=== PATIENT | male | born 1955 | race Caucasian/White ===

== ENCOUNTER 2017-05-07 10:10 | Inpatient (IN) | payer MEDICAID ==
--- NOTE | 2017-05-07 10:55 | C.PDOC ---
History Of Present Illness Patient is a 61 y/o male, accompanied by brother, is referred from the clinic for low hemoglobin level. Pt states that he visited the clinic yesterday because he was feeling dizzy, and had blood work done there. States he received a call from the clinic today, was told his hemoglobin level was 5.8g/dl, and told to report to an ER. Denies having history of low hemoglobin in the past. Pt also complains of headache at this time. Denies any blood in stool, nausea, vomiting, fever, or any other associated symptoms at this time. Time Seen by Provider: 05/07/17 10:18 Chief Complaint (Nursing): Abnormal Labs History Per: Patient History/Exam Limitations: no limitations Onset/Duration Of Symptoms: Days Current Symptoms Are (Timing): Still Present Recent travel outside of the [place]: No Additional History Per: Patient Past Medical History Reviewed: Historical Data, Nursing Documentation, Vital Signs Vital Signs: Last Vital Signs Temp 98.9 F 05/07/17 10:12 Pulse 77 05/07/17 10:12 Resp 18 05/07/17 10:12 BP 133/78 05/07/17 10:12 Pulse Ox 99 05/07/17 11:22 - Medical History PMH: HTN Family History: States: No Known Family Hx - Social History Hx Alcohol Use: No Hx Substance Use: No Review Of Systems Except As Marked, All Systems Reviewed And Found Negative. Constitutional: Negative for: Fever, Chills Cardiovascular: Negative for: Chest Pain, Palpitations Respiratory: Negative for: Cough, Shortness of Breath Gastrointestinal: Negative for: Nausea, Vomiting, Abdominal Pain, Hematochezia, Hematemesis Skin: Negative for: Rash, Bruising Neurological: Positive for: Headache, Dizziness. Negative for: Weakness, Numbness Physical Exam - Physical Exam Additional Physical Exam Comments: Constitutional: No acute distress. Head: Normocephalic. Atraumatic. Eyes: PERRL. Conjunctival pallor. ENT: Moist mucous membranes. Neck: Supple. Cardiovascular: Regular rate. Radial pulses 2+ bilaterally. Chest: No tenderness. Respiratory: Clear to auscultation bilaterally. GI: Soft. Nontender. Nondistended. Back: No CVA tenderness. Musculoskeletal: No tenderness or swelling of extremities. Skin: No rash. Neurologic: Alert, no focal deficit. ED Course And Treatment - Laboratory Results Result Diagrams: 05/07/17 10:41 05/07/17 10:41 O2 Sat by Pulse Oximetry: 99 (RA) Pulse Ox Interpretation: Normal Medical Decision Making Medical Decision Making: Plan: Blood work, UA, CXR, EKG EKG: Normal sinus rhythm at [address] wave changes. CXR HISTORY: anemia COMPARISON: No prior. FINDINGS: LUNGS: No active pulmonary disease. PLEURA: No significant pleural effusion identified, no pneumothorax apparent. CARDIOVASCULAR: Normal. OSSEOUS STRUCTURES: No significant abnormalities. VISUALIZED UPPER ABDOMEN: Normal. OTHER FINDINGS: None. IMPRESSION: No active disease. Guaiac negative. Patient consented for blood transfusion and ordered. Disposition Discussed With Dr.: Jatin Bonilla Doctor Will See Patient In The: Hospital - Disposition Disposition: HOSPITALIZED Disposition Time: 11:29 Condition: FAIR - Clinical Impression Clinical Impression: Symptomatic anemia - Scribe Statement The provider has reviewed the documentation as recorded by the Daphneibalaina Iraheta All medical record entries made by the Daphneibalaina were at my direction and personally dictated by me. I have reviewed the chart and agree that the record accurately reflects my personal performance of the history, physical exam, medical decision making, and the department course for this patient. I have also personally directed, reviewed, and agree with the discharge instructions and disposition.
[2017-05-07 10:58] LABS: BASO # 0.1 K/uL (0.0-0.2); BASO % 2.4 % (0.0-2.0); EOS # 0.1 K/uL (0.0-0.7); HEMATOCRIT 19.9 % (35.0-51.0); LYMPH # 0.9 K/uL (1.0-4.3); LYMPH % 22.6 % (20.0-40.0); MEAN CELL VOLUME 55.7 fL (80.0-94.0); MEAN CORPUSCULAR HEMOGLOBIN 15.4 pg (27.0-31.0); MEAN CORPUSCULAR HGB CONC 27.7 g/dL (33.0-37.0); MEAN PLATELET VOLUME 8.6 fL (7.2-11.7); MONO # 0.3 K/uL (0.0-0.8); MONO % 8.1 % (0.0-10.0); NRBC % 0.1 % (0.0-2.0); RED CELL DISTRIBUTION WIDTH 20.2 % (11.5-14.5)
[2017-05-07 10:59] LABS: INR 1.4
[2017-05-07 11:02] LABS: CHLORIDE 105 mmol/L (98-107); POTASSIUM 3.2 mmol/L (3.6-5.2); SODIUM 143 mmol/L (132-148)
[2017-05-07 11:04] LABS: AST/SGOT 25 U/L (17-59); CARBON DIOXIDE 24 mmol/L (22-30); GFR AFRICAN-AMERICAN > 60
[2017-05-07 11:05] LABS: ALB/GLOB RATIO 1.1 (1.0-2.1); ALKALINE PHOSPHATASE 76 U/L (38-126); ALT/SGPT 21 U/L (21-72); BLOOD UREA NITROGEN 13 mg/dL (9-20); GLUCOSE,RANDOM 84 mg/dL (75-110); TOTAL PROTEIN 7.7 g/dL (6.3-8.3)
--- NOTE | 2017-05-07 11:17 | RAD ---
HISTORY: anemia COMPARISON: No prior. FINDINGS: LUNGS: No active pulmonary disease. PLEURA: No significant pleural effusion identified, no pneumothorax apparent. CARDIOVASCULAR: Normal. OSSEOUS STRUCTURES: No significant abnormalities. VISUALIZED UPPER ABDOMEN: Normal. OTHER FINDINGS: None. IMPRESSION: No active disease.
[2017-05-07] MEDS ORDERED: Sodium Chloride 0.9% 250 ML IV ONE (11:26)
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
[2017-05-07 15:10] LABS: IRON 13 ug/dL (49-181)
[2017-05-07 15:52] LABS: HOMOCYSTEINE 7.3 umol/L (6.6-14.8)
[2017-05-07 16:26] LABS: FOLATE > 20.0 ng/mL
[2017-05-08] MEDS ORDERED: Potassium Chloride 20 mEq ER Tab PO ONE (06:00)
[2017-05-08 06:37] LABS: BASO # 0.1 K/uL (0.0-0.2); BASO % 2.1 % (0.0-2.0); EOS # 0.2 K/uL (0.0-0.7); EOS % 4.7 % (0.0-4.0); HEMATOCRIT 23.8 % (35.0-51.0); LYMPH # 1.2 K/uL (1.0-4.3); LYMPH % 25.9 % (20.0-40.0); MEAN CORPUSCULAR HEMOGLOBIN 16.8 pg (27.0-31.0); MEAN CORPUSCULAR HGB CONC 28.6 g/dL (33.0-37.0); MEAN PLATELET VOLUME 9.3 fL (7.2-11.7); MONO # 0.3 K/uL (0.0-0.8); WHITE BLOOD COUNT 4.8 K/uL (4.8-10.8)
[2017-05-08 06:38] LABS: MEAN CELL VOLUME 58.7 fL (80.0-94.0)
[2017-05-08 06:56] LABS: ALB/GLOB RATIO 1.2 (1.0-2.1); ALKALINE PHOSPHATASE 77 U/L (38-126); ALT/SGPT 19 U/L (21-72); AST/SGOT 17 U/L (17-59); BILIRUBIN,TOTAL 0.7 mg/dL (0.2-1.3); BLOOD UREA NITROGEN 11 mg/dL (9-20); CALCIUM 8.9 mg/dl (8.6-10.4); CARBON DIOXIDE 25 mmol/L (22-30); CHLORIDE 103 mmol/L (98-107); GFR AFRICAN-AMERICAN > 60; GLUCOSE,RANDOM 93 mg/dL (75-110); POTASSIUM 3.4 mmol/L (3.6-5.2); SODIUM 140 mmol/L (132-148)
[2017-05-08 07:58] LABS: FOLATE 16.3 ng/mL
[2017-05-08 08:37] LABS: TOTAL PROTEIN, SERUM 7.3 g/dL (6.1-8.1)
[2017-05-08] MEDS ORDERED: Pneumococcal 23-Valent Vaccine IM ONE (08:57)
--- NOTE | 2017-05-08 20:49 | CP.PCM.PN ---
<Savage Vega H - Last Filed: 05/08/17 21:07> Subjective - Date & Time of Evaluation Date of Evaluation: 05/08/17 Time of Evaluation: 11:40 - Subjective Subjective: Dr. Bonilla service: He is in bed receiving a blood transfusion. He has no complaints of fatigue, chest pain, shortness of breath, blood in stool, hematuria, fever or chills. Objective - Vital Signs/Intake and Output Vital Signs (last 24 hours): Temp Pulse Resp BP Pulse Ox 97.6 F 60 20 154/88 H 100 05/08/17 15:15 05/08/17 15:15 05/08/17 15:15 05/08/17 15:15 05/08/17 15:15 Intake and Output: 05/08/17 05/09/17 18:59 06:59 Intake Total 675 Balance 675 - Medications Medications: Current Medications Acetaminophen (Tylenol 325mg Tab) 650 mg PO Q6 PRN PRN Reason: Fever >100.4 F Famotidine (Pepcid) 20 mg PO BID [facility] Last Admin: 05/08/17 17:41 Dose: 20 mg - Labs Labs: 05/08/17 06:32 05/08/17 06:32 PT 15.7 SECONDS (9.7-12.2) H 05/07/17 10:41 INR 1.4 05/07/17 10:41 APTT 29 SECONDS (21-34) 05/07/17 10:41 - Constitutional Appears: Non-toxic, No Acute Distress - Head Exam Head Exam: NORMAL INSPECTION - Eye Exam Eye Exam: Normal appearance, PERRL. absent: Nystagmus, Scleral icterus Pupil Exam: NORMAL ACCOMODATION - Respiratory Exam Respiratory Exam: Clear to Ausculation Bilateral. absent: Rales, Rhonchi, Wheezes - Cardiovascular Exam Cardiovascular Exam: REGULAR RHYTHM, RRR, +S1, +S2. absent: Gallop, Rubs - GI/Abdominal Exam GI & Abdominal Exam: Soft, Normal Bowel Sounds. absent: Tenderness - Extremities Exam Extremities Exam: Normal Inspection. absent: Pedal Edema - Back Exam Back Exam: NORMAL INSPECTION - Neurological Exam Neurological Exam: Alert - Psychiatric Exam Psychiatric exam: Normal Affect, Normal Mood - Skin Skin Exam: Pallor. absent: Normal Color Assessment and Plan - Assessment and Plan (Free Text) Assessment: Anemia 05/08: Received 2 units today, follow up cbc, and Dr. Quesada's recs. Iron is low and so is % saturation, suggest iron deficiency anemia. Hgb in the ED 5.5 -Patient refused blood transfusion -Occult blood negative in the ED, repeats pending -Heme/onc consult, Dr. Quesada help appreciated -Follow up Iron studies, homocysteine, B12, folate, protein electrophoresis HTN -Noncompliance to home meds -Hold home hypertensive, BP is in the normal range Prophylactic measures -Pepcid -SCD -Tylenol -Full code Plan: Anemia -Hgb in the ED 5.5 -Patient refused blood transfusion -Occult blood negative in the ED, repeats pending -Heme/onc consult, Dr. Quesada help appreciated -Follow up Iron studies, homocysteine, B12, folate, protein electrophoresis HTN -Noncompliance to home meds -Hold home hypertensive, BP is in the normal range Prophylactic measures -Pepcid -SCD -Tylenol -Full code <Jatin Bonilla - Last Filed: 05/09/17 14:35> Objective - Vital Signs/Intake and Output Vital Signs (last 24 hours): Temp Pulse Resp BP Pulse Ox 98 F 74 20 166/89 H 100 05/09/17 09:32 05/09/17 09:32 05/09/17 09:32 05/09/17 09:32 05/09/17 09:32 Intake and Output: 05/09/17 05/09/17 06:59 18:59 Intake Total 550 Output Total 1100 Balance -550 - Medications Medications: Current Medications Acetaminophen (Tylenol 325mg Tab) 650 mg PO Q6 PRN PRN Reason: Fever >100.4 F Famotidine (Pepcid) 20 mg PO BID [facility] Last Admin: 05/09/17 11:00 Dose: 20 mg Ferric Sodium Gluconate Complex (Ferrlecit) 125 mg IVPB DAILY [facility] Last Admin: 05/09/17 11:01 Dose: 125 mg Haloperidol Lactate (Haldol) 2 mg IM Q6H PRN PRN Reason: Agitation Last Admin: 05/09/17 11:49 Dose: 2 mg - Labs Labs: 05/09/17 11:41 05/09/17 11:41 PT 15.7 SECONDS (9.7-12.2) H 05/07/17 10:41 INR 1.4 05/07/17 10:41 APTT 29 SECONDS (21-34) 05/07/17 10:41 Attending/Attestation - Attestation I have personally seen and examined this patient.: Yes I have fully participated in the care of the patient.: Yes I have reviewed all pertinent clinical information, including history, physical exam and plan: Yes Notes (Text): 05/09/17 14:35 Patient was seen and examined at bedside Receiving 2 units of blood transfusion We will follow up CBC Anemia workup in progress We have requested a hematology evaluation Discussed the plan of care with the resident and agree with the assessment and plan documented.
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
--- NOTE | 2017-05-08 22:12 | CP.PCM.PN ---
Subjective - Date & Time of Evaluation Date of Evaluation: 05/08/17 Time of Evaluation: 17:00 - Subjective Subjective: Feeling better Objective - Vital Signs/Intake and Output Vital Signs (last 24 hours): Temp Pulse Resp BP Pulse Ox 97.6 F 60 20 154/88 H 100 05/08/17 15:15 05/08/17 15:15 05/08/17 15:15 05/08/17 15:15 05/08/17 15:15 Intake and Output: 05/08/17 05/09/17 18:59 06:59 Intake Total 675 Balance 675 - Medications Medications: Current Medications Acetaminophen (Tylenol 325mg Tab) 650 mg PO Q6 PRN PRN Reason: Fever >100.4 F Famotidine (Pepcid) 20 mg PO BID [facility] Last Admin: 05/08/17 17:41 Dose: 20 mg Ferric Sodium Gluconate Complex (Ferrlecit) 125 mg IVPB DAILY [facility] - Labs Labs: 05/08/17 06:32 05/08/17 06:32 PT 15.7 SECONDS (9.7-12.2) H 05/07/17 10:41 INR 1.4 05/07/17 10:41 APTT 29 SECONDS (21-34) 05/07/17 10:41 - Head Exam Head Exam: ATRAUMATIC - Eye Exam Eye Exam: Normal appearance - ENT Exam ENT Exam: Mucous Membranes Dry - Respiratory Exam Respiratory Exam: NORMAL BREATHING PATTERN - Cardiovascular Exam Cardiovascular Exam: +S1, +S2 - GI/Abdominal Exam GI & Abdominal Exam: Normal Bowel Sounds - Extremities Exam Extremities Exam: Normal Inspection Assessment and Plan (1) Anemia Assessment & Plan: work up consistent with iron deficiency FOBT negative; outpatient GI w/u recommend checking UA will start IV iron transfusion support for goal HGB > 8 Status: Acute (2) Coagulopathy Status: Acute
[2017-05-09] MEDS: Ferric Sodium Gluconat Complex 62.5 mg/5 ml Vial IVPB SCH (11:01)
[2017-05-09 12:01] LABS: CHLORIDE 101 mmol/L (98-107); POTASSIUM 3.7 mmol/L (3.6-5.2); SODIUM 143 mmol/L (132-148)
[2017-05-09 12:03] LABS: BASO # 0.1 K/uL (0.0-0.2); BASO % 1.3 % (0.0-2.0); BILIRUBIN,TOTAL 1.3 mg/dL (0.2-1.3); CARBON DIOXIDE 26 mmol/L (22-30); EOS # 0.1 K/uL (0.0-0.7); EOS % 1.3 % (0.0-4.0); GFR AFRICAN-AMERICAN > 60; HEMATOCRIT 28.9 % (35.0-51.0); LYMPH # 1.3 K/uL (1.0-4.3); LYMPH % 19.7 % (20.0-40.0); MEAN CORPUSCULAR HEMOGLOBIN 18.1 pg (27.0-31.0); MEAN CORPUSCULAR HGB CONC 29.9 g/dL (33.0-37.0); MEAN PLATELET VOLUME 8.7 fL (7.2-11.7); MONO # 0.4 K/uL (0.0-0.8); MONO % 6.1 % (0.0-10.0); RED CELL DISTRIBUTION WIDTH 26.5 % (11.5-14.5); WHITE BLOOD COUNT 6.8 K/uL (4.8-10.8)
[2017-05-09 12:04] LABS: ALB/GLOB RATIO 1.1 (1.0-2.1); ALKALINE PHOSPHATASE 92 U/L (38-126); ALT/SGPT 26 U/L (21-72); AST/SGOT 20 U/L (17-59); BLOOD UREA NITROGEN 11 mg/dL (9-20); CALCIUM 9.9 mg/dl (8.6-10.4); GLUCOSE,RANDOM 84 mg/dL (75-110); MEAN CELL VOLUME 60.7 fL (80.0-94.0); TOTAL PROTEIN 8.9 g/dL (6.3-8.3)
--- NOTE | 2017-05-09 15:35 | CP.PCM.PN ---
<Jatin Bonilla M - Last Filed: 05/09/17 16:46> Objective - Vital Signs/Intake and Output Vital Signs (last 24 hours): Temp Pulse Resp BP Pulse Ox 98.4 F 70 18 152/78 H 98 05/09/17 15:39 05/09/17 15:39 05/09/17 15:39 05/09/17 15:39 05/09/17 15:39 Intake and Output: 05/09/17 05/09/17 06:59 18:59 Intake Total 550 Output Total 1100 Balance -550 - Medications Medications: Current Medications Acetaminophen (Tylenol 325mg Tab) 650 mg PO Q6 PRN PRN Reason: Fever >100.4 F Famotidine (Pepcid) 20 mg PO BID [facility] Last Admin: 05/09/17 11:00 Dose: 20 mg Ferric Sodium Gluconate Complex (Ferrlecit) 125 mg IVPB DAILY [facility] Last Admin: 05/09/17 11:01 Dose: 125 mg Haloperidol Lactate (Haldol) 2 mg IM Q6H PRN PRN Reason: Agitation Last Admin: 05/09/17 11:49 Dose: 2 mg - Labs Labs: 05/09/17 11:41 05/09/17 11:41 PT 15.7 SECONDS (9.7-12.2) H 05/07/17 10:41 INR 1.4 05/07/17 10:41 APTT 29 SECONDS (21-34) 05/07/17 10:41 Attending/Attestation - Attestation I have personally seen and examined this patient.: Yes I have fully participated in the care of the patient.: Yes I have reviewed all pertinent clinical information, including history, physical exam and plan: Yes Notes (Text): 05/09/17 16:47 Patient was seen and examined at bedside today Patient appears confused He is status post 2 units of PRBC. Follow-up a CBC We will transfuse further if needed The confusion and change in mental status appears to be secondary to hospital delirium We will monitor the patientand order Haldol as needed We will also request psychiatry evaluation for the patient I discussed the plan of care with the resident and agree with the assessment and plan documented above. <Savage Vega H - Last Filed: 05/09/17 21:32> Subjective - Date & Time of Evaluation Date of Evaluation: 05/09/17 Time of Evaluation: 10:00 - Subjective Subjective: Dr. Bonilla service: Patient seen in room. He is very confused and disoriented. He does not know where is at and why is here. He is also unoriented the year, month, and day of the week. Unable to obtain history from patient. Spoke with family in room who says patient is often confused at home. They said he lives alone although he has a and children in [place]. Objective - Vital Signs/Intake and Output Vital Signs (last 24 hours): Temp Pulse Resp BP Pulse Ox 98 F 74 20 166/89 H 100 05/09/17 09:32 05/09/17 09:32 05/09/17 09:32 05/09/17 09:32 05/09/17 09:32 Intake and Output: 05/09/17 05/09/17 06:59 18:59 Intake Total 550 Output Total 1100 Balance -550 - Medications Medications: Current Medications Acetaminophen (Tylenol 325mg Tab) 650 mg PO Q6 PRN PRN Reason: Fever >100.4 F Famotidine (Pepcid) 20 mg PO BID [facility] Last Admin: 05/09/17 11:00 Dose: 20 mg Ferric Sodium Gluconate Complex (Ferrlecit) 125 mg IVPB DAILY [facility] Last Admin: 05/09/17 11:01 Dose: 125 mg Haloperidol Lactate (Haldol) 2 mg IM Q6H PRN PRN Reason: Agitation Last Admin: 05/09/17 11:49 Dose: 2 mg - Labs Labs: 05/09/17 11:41 05/09/17 11:41 PT 15.7 SECONDS (9.7-12.2) H 05/07/17 10:41 INR 1.4 05/07/17 10:41 APTT 29 SECONDS (21-34) 05/07/17 10:41 - Constitutional Appears: Confused - Eye Exam Eye Exam: Normal appearance - Respiratory Exam Respiratory Exam: Clear to Ausculation Bilateral. absent: Rales, Rhonchi, Wheezes - Cardiovascular Exam Cardiovascular Exam: REGULAR RHYTHM, RRR, +S1, +S2. absent: Gallop, Rubs - GI/Abdominal Exam GI & Abdominal Exam: Soft, Normal Bowel Sounds. absent: Tenderness - Extremities Exam Extremities Exam: Normal Inspection. absent: Pedal Edema - Neurological Exam Neurological Exam: absent: Oriented x3 - Psychiatric Exam Psychiatric exam: Anxious - Skin Skin Exam: Warm. absent: Normal Color Assessment and Plan - Assessment and Plan (Free Text) Assessment: Delirium: Psych consulted, most likely hospital acquired delrium. Mary victoria. Spoke with family who said he has been diagnosed with dementia in the past. Anemia 05/09: Hbg is no 8.4, IV Ferrict for low iron 05/08: Received 2 units today, follow up cbc, and Dr. Quesada's recs. Iron is low and so is % saturation, suggest iron deficiency anemia. Hgb in the ED 5.5 -Patient refused blood transfusion -Occult blood negative in the ED, repeats pending -Heme/onc consult, Dr. Quesada help appreciated -Follow up Iron studies, homocysteine, B12, folate, protein electrophoresis HTN -Noncompliance to home meds -Hold home hypertensive, BP is in the normal range Prophylactic measures -Pepcid -SCD -Tylenol -Full code
--- NOTE | 2017-05-09 22:04 | PCM.PSYCH ---
Initial Psychiatric Evaluation - Initial Psychiatric Evaluation Type of Admission: Voluntary Legal Status: Capacity Chief Complaint (in patient's own words): I am home, waiting for my kids to come. Current Medications: Active Medications Generic Name Dose Route Start Last Admin Trade Name Freq PRN Reason Stop Dose Admin Acetaminophen 650 mg 05/07/17 15:59 Tylenol 325mg Tab PO Q6 PRN Fever >100.4 F Famotidine 20 mg 05/07/17 18:00 05/09/17 18:26 Pepcid PO 20 mg BID [facility] Administration Ferric Sodium Gluconate Complex 125 mg 05/08/17 21:30 05/09/17 11:01 Ferrlecit IVPB 125 mg DAILY [facility] Administration Haloperidol Lactate 2 mg 05/09/17 10:44 05/09/17 11:49 Haldol IM 2 mg Q6H PRN Administration Agitation Past Psychiatric History - Past Psychiatric History Pertinent Medical Hx (Current Medical&Sleep Prob, Allergies): Allergies Allergy/AdvReac Type Severity Reaction Status Date / Time No Known Allergies Allergy Verified 05/07/17 10:17 Amlodipine Besylate/Benazepril [Lotrel 10 mg-40 mg] 1 cap PO DAILY 05/07/17 Propranolol [Inderal] 40 mg PO DAILY 05/07/17
[2017-05-10] MEDS: Ferric Sodium Gluconat Complex 62.5 mg/5 ml Vial IVPB SCH (10:21)
[2017-05-10 12:29] LABS: BASO # 0.1 K/uL (0.0-0.2); BASO % 1.8 % (0.0-2.0); EOS # 0.2 K/uL (0.0-0.7); EOS % 3.1 % (0.0-4.0); HEMATOCRIT 26.3 % (35.0-51.0); LYMPH # 1.5 K/uL (1.0-4.3); LYMPH % 25.2 % (20.0-40.0); MEAN CELL VOLUME 60.9 fL (80.0-94.0); MEAN CORPUSCULAR HEMOGLOBIN 18.2 pg (27.0-31.0); MEAN CORPUSCULAR HGB CONC 29.9 g/dL (33.0-37.0); MEAN PLATELET VOLUME 8.8 fL (7.2-11.7); MONO # 0.5 K/uL (0.0-0.8); MONO % 9.5 % (0.0-10.0); RED CELL DISTRIBUTION WIDTH 26.2 % (11.5-14.5); WHITE BLOOD COUNT 5.8 K/uL (4.8-10.8)
[2017-05-10 12:44] LABS: CHLORIDE 101 mmol/L (98-107); SODIUM 142 mmol/L (132-148)
[2017-05-10 12:47] LABS: ALB/GLOB RATIO 1.1 (1.0-2.1); ALKALINE PHOSPHATASE 80 U/L (38-126); ALT/SGPT 23 U/L (21-72); AST/SGOT 18 U/L (17-59); BILIRUBIN,TOTAL 0.9 mg/dL (0.2-1.3); BLOOD UREA NITROGEN 11 mg/dL (9-20); CALCIUM 9.5 mg/dl (8.6-10.4); CARBON DIOXIDE 26 mmol/L (22-30); GFR AFRICAN-AMERICAN > 60; GLUCOSE,RANDOM 98 mg/dL (75-110); TOTAL PROTEIN 7.7 g/dL (6.3-8.3)
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
--- NOTE | 2017-05-11 | CARD ---
APPROVED REPORT EKG Measurement Heart [id number] MI [id number] <Conclusion> Sinus bradycardia Otherwise normal ECG
--- NOTE | 2017-05-11 04:24 | CP.PCM.PN ---
Subjective - Date & Time of Evaluation Date of Evaluation: 05/10/17 Time of Evaluation: 19:00 - Subjective Subjective: No complaints Objective - Vital Signs/Intake and Output Vital Signs (last 24 hours): Temp Pulse Resp BP Pulse Ox 98.0 F 58 L 20 145/83 97 05/11/17 00:05 05/11/17 00:05 05/11/17 00:05 05/11/17 00:05 05/11/17 00:05 - Medications Medications: Current Medications Acetaminophen (Tylenol 325mg Tab) 650 mg PO Q6 PRN PRN Reason: Fever >100.4 F Last Admin: 05/10/17 10:21 Dose: 650 mg Famotidine (Pepcid) 20 mg PO BID REPLACED BY [facility] Last Admin: 05/10/17 17:04 Dose: 20 mg Ferric Sodium Gluconate Complex (Ferrlecit) 125 mg IVPB DAILY [facility]PL[facility] Last Admin: 05/10/17 10:21 Dose: 125 mg Haloperidol Lactate (Haldol) 2 mg IM Q6H PRN PRN Reason: Agitation Last Admin: 05/09/17 11:49 Dose: 2 mg - Labs Labs: 05/10/17 12:21 05/10/17 12:21 PT 15.7 SECONDS (9.7-12.2) H 05/07/17 10:41 INR 1.4 05/07/17 10:41 APTT 29 SECONDS (21-34) 05/07/17 10:41 - Head Exam Head Exam: ATRAUMATIC - Eye Exam Eye Exam: Normal appearance - ENT Exam ENT Exam: Mucous Membranes Dry - Respiratory Exam Respiratory Exam: NORMAL BREATHING PATTERN - Cardiovascular Exam Cardiovascular Exam: +S1, +S2 - Extremities Exam Extremities Exam: Normal Inspection Assessment and Plan (1) Anemia Assessment & Plan: iron deficiency anemia outpatient GI work up IV ferrlecit transfusion support PRN Status: Acute (2) Coagulopathy Status: Acute
[2017-05-11 06:37] LABS: BASO # 0.1 K/uL (0.0-0.2); EOS # 0.3 K/uL (0.0-0.7); EOS % 5.2 % (0.0-4.0); HEMATOCRIT 26.8 % (35.0-51.0); LYMPH # 1.4 K/uL (1.0-4.3); LYMPH % 23.3 % (20.0-40.0); MEAN CELL VOLUME 61.1 fL (80.0-94.0); MEAN CORPUSCULAR HEMOGLOBIN 18.1 pg (27.0-31.0); MEAN CORPUSCULAR HGB CONC 29.6 g/dL (33.0-37.0); MEAN PLATELET VOLUME 8.6 fL (7.2-11.7); MONO # 0.6 K/uL (0.0-0.8); MONO % 9.6 % (0.0-10.0); RED CELL DISTRIBUTION WIDTH 26.3 % (11.5-14.5)
[2017-05-11 08:28] VITALS: BP 157/86; PULSE 65; RESP 18; TEMP 98.2; O2SAT 98
[2017-05-11] MEDS: Ferric Sodium Gluconat Complex 62.5 mg/5 ml Vial IVPB SCH (10:08)
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
[2017-05-11 20:33] LABS: BETA 1 GLOBULIN 0.5 g/dL (0.4-0.6); BETA 2 GLOBULIN 0.3 g/dL (0.2-0.5); GAMMA GLOBULIN 1.6 g/dL (0.8-1.7)
== END 2017-05-11 14:08 | disposition home or self-care (01) | DRG 395 ==
LOC: C.ER 10:10 → C.9E 11:21 → C.3T 14:39 → C.6T 18:21
PROVIDERS: ADMIT Hospitalist; ATTEND Hospitalist
PROC: 30233N1 Transfusion of Nonautologous Red Blood Cells into Peripheral Vein, Percutaneous Approach (ICD-10-PCS; principal; 2017-05-07)
DX: D64.9 Anemia, unspecified (principal); D68.9 Coagulation defect, unspecified; F03.90 Unspecified dementia, unspecified severity, without behavioral disturbance, psychotic disturbance, mood disturbance, and anxiety; I10 Essential (primary) hypertension; Z91.19 Patient's noncompliance with other medical treatment and regimen

== ENCOUNTER 2017-07-31 12:52 | Emergency (ER) | payer MEDICAID ==
[2017-07-31 12:58] VITALS: RESP 18; TEMP 97.5; O2SAT 99
--- NOTE | 2017-07-31 13:08 | C.PDOC ---
History Of Present Illness 61 y/o male with a hx of HTN, c/o headache, left eye redness, and pain after waking up this morning. Patient does not recall having trauma to the left eye. No fever, chills, or URI symptoms. pt reports h/o of previous tbi. Time Seen by Provider: 07/31/17 13:06 Chief Complaint (Nursing): Eye Problem History Per: Patient History/Exam Limitations: no limitations Onset/Duration Of Symptoms: Hrs (This morning) Current Symptoms Are (Timing): Still Present Injury To Eye?: No Severity: Mild Quality: "Pain" Associated Symptoms: Pain. denies: Decreased Vision, Discharge From Eye Recent travel outside of the [place]: No Additional History Per: Patient Past Medical History Reviewed: Historical Data, Nursing Documentation, Vital Signs Vital Signs: Last Vital Signs Temp 97.5 F L 07/31/17 12:55 Pulse 59 L 07/31/17 14:16 Resp 18 07/31/17 14:16 BP 139/80 07/31/17 14:16 Pulse Ox 99 07/31/17 14:16 - Medical History PMH: Anemia, HTN Denies: Chronic Kidney Disease - [facility] Procedures TRANSFUSE NONAUT RED BLOOD CELLS IN PERIPH VEIN, PERC (05/07/17) Family History: States: Unknown Family Hx - Social History Hx Alcohol Use: No Hx Substance Use: No - Immunization History Hx Tetanus Toxoid Vaccination: Yes Hx Influenza Vaccination: No Hx Pneumococcal Vaccination: No Review Of Systems Except As Marked, All Systems Reviewed And Found Negative. Constitutional: Negative for: Fever, Chills Eyes: Positive for: Pain (LEft), Redness (left) ENT: Negative for: Nose Discharge, Nose Congestion, Throat Pain Respiratory: Negative for: Cough Skin: Negative for: Rash Neurological: Positive for: Headache. Negative for: Weakness, Numbness Physical Exam - Physical Exam Appears: Non-toxic, No Acute Distress Skin: Warm, Dry Head: Atraumatic, Normacephalic Eye(s): bilateral: PERRL, EOMI, right: Normal Inspection, left: Other (Erythema to the left eye. No discharge.) Ear(s): Bilateral: Normal Oral Mucosa: Moist Throat: Normal, No Erythema Chest: Symmetrical Cardiovascular: Rhythm Regular, No Murmur Respiratory: Normal Breath Sounds, No Rales, No Rhonchi, No Wheezing Gastrointestinal/Abdominal: Soft, No Tenderness Neurological/Psych: Oriented x3, Normal Motor, Normal Sensation ED Course And Treatment O2 Sat by Pulse Oximetry: 99 (RA) Pulse Ox Interpretation: Normal Medical Decision Making Medical Decision Making: suspect subconjuctival hematoma, will check visual acuity, ct head, ocular pressure. Plans: * CT Head w/o * Tylenol * Tetracaine visual acuity to left eye limited 2/2 previous tbi, unable to follow instructions-. ocular pressure 15 (95%) Disposition - Disposition Referrals: Eric Barrett [Staff Provider] - Juan Daniel De Luna MD [Staff Provider] - Disposition: HOME/ ROUTINE Disposition Time: 14:14 Condition: STABLE Additional Instructions: please follow up with your doctor. return to er with worsening symptoms or concerns. Instructions: Subconjunctival Hemorrhage (ED), Acute Headache (ED) Forms: [employer] (Estonian) - Clinical Impression Clinical Impression: Headache, Subconjunctival hematoma - Scribe Statement The provider has reviewed the documentation as recorded by the Scribe Yajaira parada All medical record entries made by the Scribe were at my direction and personally dictated by me. I have reviewed the chart and agree that the record accurately reflects my personal performance of the history, physical exam, medical decision making, and the department course for this patient. I have also personally directed, reviewed, and agree with the discharge instructions and disposition.
[2017-07-31] MEDS ORDERED: Tetracaine 0.5% Ophth 2 ML BOTTLE OS ONE (13:09)
[2017-07-31] MEDS ORDERED: Tetracaine 0.5% Ophth (OR ONLY) ONE (13:19)
--- NOTE | 2017-07-31 14:03 | CT ---
PROCEDURE: CT HEAD WITHOUT CONTRAST. HISTORY: Headache COMPARISON: None available. TECHNIQUE: Axial computed tomography images were obtained through the head/brain without intravenous contrast. Radiation dose: Total exam DLP = 950.50 mGy-cm. This CT exam was performed using one or more of the following dose reduction techniques: Automated exposure control, adjustment of the mA and/or kV according to patient size, and/or use of iterative reconstruction technique. FINDINGS: HEMORRHAGE: No intracranial hemorrhage. BRAIN: Veronica-white matter differentiation is preserved. There is no mass, mass effect or abnormal extra-axial fluid collection. VENTRICLES: There is moderate age-related global parenchymal volume loss and proportionate enlargement of the ventricles and cortical sulci. CALVARIUM: The skull base and calvarium are normal. PARANASAL SINUSES: Predominantly clear. MASTOID AIR CELLS: Predominantly clear. OTHER FINDINGS: None. IMPRESSION: No acute intracranial abnormality. Moderate age-related global parenchymal volume loss.
[2017-07-31 14:17] VITALS: BP 139/80; PULSE 59
== END 2017-07-31 14:19 | disposition home or self-care (01) ==
LOC: C.ER 12:52
DX: R51 Headache (principal); S05.12XA Contusion of eyeball and orbital tissues, left eye, initial encounter; X58.XXXA Exposure to other specified factors, initial encounter

== ENCOUNTER 2018-03-19 15:27 | Emergency (ER) | payer MEDICAID ==
[2018-03-19 15:39] VITALS: O2SAT 98
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
[2018-03-19] MEDS ORDERED: ceFAZolin 1 gm in NS 1 GM/100 ML BAG IVPB ONE (17:00)
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
[2018-03-19] MEDS ORDERED: Lidocaine 1% w Epi 1:100,000 Inj INFIL STA (18:31)
[2018-03-19] MEDS ORDERED: Tmp-Smz 800 mg-160 mg DS Tab PO STA (18:31)
[2018-03-19] MEDS ORDERED: Tmp-Smz 800 mg-160 mg DS Tab ONE (18:39)
[2018-03-19] MEDS ORDERED: Oxymetazoline 0.05% Nasal Spray (30 ml) NS STA (18:47)
[2018-03-19] MEDS ORDERED: Phenylephrine 1% Nasal Spray (15 ml) ONE (18:51)
[2018-03-19] MEDS ORDERED: Lidocaine Hydrochloride 5 ML INJ ONE (20:45)
[2018-03-19] MEDS ORDERED: Bacitracin 500 Units/gm Oint Foilpak UD ONE (21:06)
[2018-03-19 21:34] VITALS: BP 134/79; PULSE 79; RESP 20; TEMP 98
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
== END 2018-03-19 21:34 | disposition home or self-care (01) ==
LOC: C.ER 15:27
DX: S01.81XA Laceration without foreign body of other part of head, initial encounter (principal); S01.21XA Laceration without foreign body of nose, initial encounter; S02.2XXB Fracture of nasal bones, initial encounter for open fracture; W22.8XXA Striking against or struck by other objects, initial encounter; I10 Essential (primary) hypertension
CPT/HCPCS: 12013; 70450; 70480; 96365; 99285; J0690

== ENCOUNTER 2018-06-16 09:49 | Emergency (ER) | payer MEDICAID ==
[2018-06-16 10:24] VITALS: BP 142/88; PULSE 67; RESP 18; TEMP 98.3; O2SAT 97
--- NOTE | 2018-06-16 10:37 | C.PDOC ---
History Of Present Illness 62-year-old male, presents to the emergency department requesting removal of mcdaniel catheter. Patient states he had a catheter inserted for urinary retention three days ago at [facility]. Today he comes in stating he wants it removed. Pt has not followed with urology. No other complaints at this time. Time Seen by Provider: 06/16/18 09:57 Chief Complaint (Nursing): Male Genitourinary History Per: Patient History/Exam Limitations: no limitations Past Medical History Reviewed: Historical Data, Nursing Documentation, Vital Signs Vital Signs: Last Vital Signs Temp 98.3 F 06/16/18 10:23 Pulse 67 06/16/18 10:23 Resp 18 06/16/18 10:23 BP 142/88 06/16/18 10:23 Pulse Ox 97 06/16/18 10:23 - Medical History PMH: Anemia, HTN - [facility] Procedures TRANSFUSE NONAUT RED BLOOD CELLS IN PERIPH VEIN, PERC (05/07/17) Family History: States: No Known Family Hx - Social History Hx Alcohol Use: No Hx Substance Use: No - Immunization History Hx Tetanus Toxoid Vaccination: Yes Hx Influenza Vaccination: No Hx Pneumococcal Vaccination: No Review Of Systems Constitutional: Negative for: Fever, Chills Cardiovascular: Negative for: Chest Pain Respiratory: Negative for: Shortness of Breath Gastrointestinal: Negative for: Nausea, Vomiting, Abdominal Pain, Diarrhea Neurological: Negative for: Weakness, Numbness Physical Exam - Physical Exam Appears: Non-toxic, No Acute Distress Skin: Warm, Dry, No Rash Head: Atraumatic, Normacephalic Eye(s): bilateral: Normal Inspection, PERRL, EOMI Nose: Normal Oral Mucosa: Moist Lips: Normal Appearing Neck: Normal ROM Cardiovascular: Rhythm Regular, No Murmur Respiratory: Normal Breath Sounds, No Accessory Muscle Use Gastrointestinal/Abdominal: Soft, No Tenderness Extremity: Normal ROM, No Deformity Neurological/Psych: Oriented x3, Normal Speech ED Course And Treatment O2 Sat by Pulse Oximetry: 97 Pulse Ox Interpretation: Normal (RA) Progress Note: Patient requesting to have mcdaniel cath removed. Mcdaniel draining pink tinged urine. Abdomen soft. Mcdaniel removed. Patient advised to follow up with urology for further evaluation Reassessment Condition: Unchanged Disposition Counseled Patient/Family Regarding: Need For Followup - Disposition Referrals: Matt Castro Jr., MD [Staff Provider] - Disposition: HOME/ ROUTINE Disposition Time: 10:45 Condition: STABLE Additional Instructions: Return to ED if any increase symptoms Follow up with urology for further evaluation Instructions: Mcdaniel Catheter, Male, Urinary Retention - POA Present On Arrival: None - Clinical Impression Clinical Impression: Encounter for Mcdaniel catheter removal - Scribe Statement The provider has reviewed the documentation as recorded by the Scribe (Lyssa Crane) All medical record entries made by the Scribe were at my direction and personally dictated by me. I have reviewed the chart and agree that the record accurately reflects my personal performance of the history, physical exam, medical decision making, and the department course for this patient. I have also personally directed, reviewed, and agree with the discharge instructions and disposition.
== END 2018-06-16 10:53 | disposition home or self-care (01) ==
LOC: C.ER 09:49
DX: Z46.6 Encounter for fitting and adjustment of urinary device (principal); I10 Essential (primary) hypertension

== ENCOUNTER 2018-12-25 07:58 | Emergency (ER) | payer MEDICAID, MEDICARE, OTHER ==
[2018-12-25 08:17] VITALS: BP 147/97; PULSE 86; RESP 20; TEMP 97.7; O2SAT 97
--- NOTE | 2018-12-25 08:28 | C.PDOC ---
History Of Present Illness Pt is a 63 years old male with PMHx of enlarged prostate and prior Mcdaniel catheter insertion, presents to ED for complaints of urinary retention associated with suprapubic abdominal pain that began last night at 9PM. Denies fever or any other physical complaints. Sometimes the urine will dribble out. Denies Hx of smoking or alcohol use. PMD: * [place] Urologist: * Jaleesa Huerta Time Seen by Provider: 12/25/18 08:25 Chief Complaint (Nursing): Male Genitourinary History Per: Patient History/Exam Limitations: no limitations Onset/Duration Of Symptoms: Hrs Current Symptoms Are (Timing): Still Present Associated Symptoms: denies: Fever, Chills, Nausea, Vomiting, Diarrhea Alleviating Factors: None Recent travel outside of the [place]: No Past Medical History Reviewed: Historical Data, Nursing Documentation, Vital Signs Vital Signs: Last Vital Signs Temp 97.7 F 12/25/18 08:08 Pulse 86 12/25/18 08:08 Resp 20 12/25/18 08:08 BP 147/97 H 12/25/18 08:08 Pulse Ox 97 12/25/18 08:08 - Medical History PMH: Anemia, HTN Denies: Chronic Kidney Disease - [facility] Procedures TRANSFUSE NONAUT RED BLOOD CELLS IN PERIPH VEIN, PERC (05/07/17) Family History: States: Unknown Family Hx - Social History Hx Alcohol Use: No Hx Substance Use: No - Immunization History Hx Tetanus Toxoid Vaccination: Yes Hx Influenza Vaccination: No Hx Pneumococcal Vaccination: No Review Of Systems Except As Marked, All Systems Reviewed And Found Negative. Constitutional: Negative for: Fever, Chills Respiratory: Negative for: Shortness of Breath Gastrointestinal: Positive for: Abdominal Pain (suprapubic pain). Negative for: Nausea, Vomiting, Diarrhea Genitourinary: Positive for: Other (Urinary retention ) Skin: Negative for: Rash Neurological: Negative for: Weakness, Numbness Physical Exam - Physical Exam Appears: Non-toxic, Other (seems uncomfortable) Skin: Normal Color, Warm, Dry, No Rash Head: Atraumatic, Normacephalic Eye(s): bilateral: Normal Inspection, EOMI Ear(s): Bilateral: Normal Nose: Normal Oral Mucosa: Moist Tongue: Normal Appearing Lips: Normal Appearing Throat: Normal Neck: Normal ROM, Supple Chest: Symmetrical, No Tenderness Cardiovascular: Rhythm Regular, No Murmur Respiratory: Normal Breath Sounds, No Rales, No Rhonchi, No Wheezing Gastrointestinal/Abdominal: Bowel Sounds, Soft, Tenderness (Suprapubic ) Rectal: Deferred Back: Normal Inspection Extremity: Normal ROM Extremity: Bilateral: Atraumatic, Normal Color And Temperature, Normal ROM Pulses: Left Radial: Normal, Right Radial: Normal Neurological/Psych: Oriented x3, Normal Speech ED Course And Treatment - Laboratory Results Result Diagrams: 12/25/18 09:18 12/25/18 09:18 O2 Sat by Pulse Oximetry: 97 (RA) Pulse Ox Interpretation: Normal Medical Decision Making Medical Decision Making: Initial Impression: Urinary retention Initial Plan: Will attempt to place mcdaniel Progress note: Nursing unsucessful at placing mcdaniel. I attempted to place mcdaniel unsuccessfully 3 times. 8:55: * Spoke with Alexa Lema (Urology marketing manager health communications), will be in ER in 30-40 minutes. 9:25: * Spoke with Dr. Hankins which stated he will perform procedure in operating room. Will be less likely to induce trauma if done in controlled setting in cysto room in OR. * Will admit patient to observation same day surgery 10:25 AM - Daughter arrived on seen and said she is signing out her father AMA and taking him to [place] and that the urologist will meet him at [place]. I explained risks and still signed AMA papers but did not wait for discharge papers. Disposition - Disposition Disposition: AGAINST MEDICAL ADVICE Disposition Time: 09:19 Condition: FAIR - POA Present On Arrival: None - Clinical Impression Clinical Impression: Urinary retention due to benign prostatic hyperplasia - Scribe Statement The provider has reviewed the documentation as recorded by the Scribe Rema Campos All medical record entries made by the Daphneibe were at my direction and personally dictated by me. I have reviewed the chart and agree that the record accurately reflects my personal performance of the history, physical exam, medical decision making, and the department course for this patient. I have also personally directed, reviewed, and agree with the discharge instructions and disposition. Decision To Admit - Pt Status Changed To: Hospital Disposition Of: SDS- Endo,OR,Cath,IR - . Bed Request Type: Same Day Surgery Admitting Physician: Vasiliy Hankins Patient Diagnosis: Urinary retention due to benign prostatic hyperplasia
[2018-12-25 09:30] LABS: BASO # 0.1 K/uL (0.0-0.2); EOS # 0.1 K/uL (0.0-0.7); EOS % 0.6 % (0.0-4.0); HEMOGLOBIN 8.4 g/dL (12.0-18.0); LYMPH # 1.5 K/uL (1.0-4.3); LYMPH % 17.7 % (20.0-40.0); MEAN CORPUSCULAR HEMOGLOBIN 20.7 pg (27.0-31.0); MEAN CORPUSCULAR HGB CONC 31.3 g/dL (33.0-37.0); MEAN PLATELET VOLUME 8.2 fL (7.2-11.7); MONO # 0.7 K/uL (0.0-0.8); MONO % 8.3 % (0.0-10.0); NEUT % 72.4 % (50.0-75.0); RBC 4.05 Mil/uL (4.40-5.90); RED CELL DISTRIBUTION WIDTH 17.3 % (11.5-14.5); WHITE BLOOD COUNT 8.3 K/uL (4.8-10.8)
[2018-12-25 09:31] LABS: MEAN CELL VOLUME 66.1 fL (80.0-94.0)
[2018-12-25 09:40] LABS: ALB/GLOB RATIO 1.3 (1.0-2.1); ALBUMIN 4.3 g/dL (3.5-5.0); ALT/SGPT 9 U/L (21-72); AST/SGOT 24 U/L (17-59); BLOOD UREA NITROGEN 13 mg/dL (9-20); CALCIUM 9.3 mg/dl (8.6-10.4); GFR NON-AFRICAN AMERICAN > 60
--- NOTE | 2018-12-25 12:04 | RAD ---
Date of service: 12/25/2018 PROCEDURE: CHEST RADIOGRAPH, 1 VIEW HISTORY: PREOP COMPARISON: Comparison is made with 04/26/2018 FINDINGS: LUNGS: Clear. PLEURA: No pneumothorax or pleural fluid seen. CARDIOVASCULAR: No aortic atherosclerotic calcification present. Normal. OSSEOUS STRUCTURES: No significant abnormalities. VISUALIZED UPPER ABDOMEN: Normal. OTHER FINDINGS: None. IMPRESSION: No active disease.
--- NOTE | 2018-12-26 18:24 | CARD ---
APPROVED REPORT Date of service: 12/25/2018 EKG Measurement Heart [id number] <Conclusion> Normal sinus rhythm Normal ECG
== END 2018-12-25 10:13 | disposition left against medical advice (07) ==
LOC: C.ER 07:58 → C.9E 09:11 → UNDOADMOB 09:11 → C.6T 09:54 → C.9E 09:54
DX: N40.1 Benign prostatic hyperplasia with lower urinary tract symptoms (principal); R33.8 Other retention of urine; I10 Essential (primary) hypertension